=== PATIENT | male | born 2000 | race Caucasian/White ===

== ENCOUNTER 2021-10-09 22:34 | Emergency (ER) | payer OTHER ==
[~2021-10-09] VITALS: Ht 172.7 cm; Wt 70.8 kg
== END 2021-10-10 02:16 | disposition home or self-care (01) ==
LOC: ED 22:34
DX: S02.2XXA Fracture of nasal bones, initial encounter for closed fracture (principal); S30.1XXA Contusion of abdominal wall, initial encounter; S00.83XA Contusion of other part of head, initial encounter; S09.90XA Unspecified injury of head, initial encounter; Z88.8 Allergy status to other drugs, medicaments and biological substances; Z91.040 Latex allergy status; Y04.0XXA Assault by unarmed brawl or fight, initial encounter
CPT/HCPCS: 36415; 70450; 70486; 70498; 72125; 74177; 80053; 85025; 85610; 85730; 99284-25; G0480; J1200; J2270; J2405; J2930; Q9967